=== PATIENT | male | born 1950 | race Caucasian/White ===

== ENCOUNTER 2016-09-02 09:12 | Emergency (ER) | payer MEDICARE ==
[~2016-09-02] VITALS: Ht 182.9 cm; Wt 104.1 kg
[2016-09-02 09:15] VITALS: BP 153/59; PULSE 81; RESP 18; O2SAT 100
--- NOTE | 2016-09-02 09:25 | ED.REPORT ---
HPI-Chest Pain 40 and Over Date of Service Sep 02, 2016 ED Provider: Diego Ho MD History of Present Illness: Sent from urgent care Pt is a 66 year old male with a history of HTN, hyperlipidemia, and type II DM who presents to the ED complaining of intermittent chest pain onset 2 months ago. He c/o associated dizziness, nausea SOB, lethargy (onset 2 months ago), weakness, intermittent numbness in toes and fingers, intermittent left shoulder and left arm pain (onset 2 weeks ago), and dyspnea with exertion. He denies vertigo, diaphoresis, hematuria, hematochezia, vomiting, sore throat, recent ear -related symptoms, extremity swelling, and any other symptoms. 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 Per pt, the chest pain stopped, but the dizziness in still present. Pt is a former smoker. He reports that he took Aspirin this morning to relieve his symptoms. Nursing Notes Stated Complaint: DIZZINESS Chief Complaint: General Complaint Nursing Notes Reviewed: Yes (autoGraph, Lengow not reconciled) Allergies: Coded Allergies: No Known Allergies (Unverified Allergy, Unknown, 09/02/16) Scheduled PRN Alprazolam (Xanax) 0.25 Mg Tablet 0.25-0.5 MG PO TID PRN PRN For Anxiety Meclizine (Bonine) 25 Mg Tab.chew 25 MG PO Q6H PRN PRN vertigo General Time Seen by MD: 09:19 Chief Complaint Chest pain Hx Obtained From: Patient Arrived By: Walk-in Sudden in Onset?: No Onset Occurred: Just prior to arrival Symptom Duration: 1 - 15 minutes Location: : Chest left Quality: Painful Severity: Current: Moderate Severity: Maximum: Moderate Recent Healthcare: No recent doctor visit, No recent hospitalization Similar Sx Previous: No Past Medical History Past Medical History Former drug abuse Reports: Diabetes mellitus (Type II), Hyperlipidemia, Hypertension Past Surgical History Denies Smoking History Former Smoker (quit 4 years ago) Social History Drug Use: Denies drug use Ambulatory Status Independent Review of Systems Denies vertigo Constitutional: Reports: Lethargy, Weakness - generalized Respiratory: Reports: Dyspnea on exertion, Shortness of breath Cardiovascular: Reports: Chest pain GI: Reports: Nausea, Denies: Hematochezia, Vomiting Musculoskeletal: Reports: Extremity pain, Denies: Extremity swelling Skin: Denies Diaphoresis Neurologic: Reports: Dizziness, Numbness Complete sys rev & neg: except as marked. Ears / Nose / Throat: Denies: Ear drainage bilateral, Ear ringing bilateral, Earache bilateral, Hearing loss bilateral, Sore throat Male: Denies Hematuria Physical Exam Initial Vital Signs Vital Signs (First) Date Time Temp Pulse Resp B/P Pulse Ox O2 Delivery O2 Flow Rate FiO2 09/02/16 09:15 36.7 81 18 153/59 100 Room Air Initial VS: Reviewed, Unavailable (none on chart, ordered) Head / Eyes: Atraumatic, Normocephalic Neck: Supple, Full range of motion Skin: Warm, Dry, No cyanosis Neurologic: Alert, Oriented, Nonfocal Psychiatric: Mood/affect normal, Behavior normal General/Constitutional: Awake, Alert, Cooperative Respiratory / Chest: Atraumatic, Breath sounds NL, Breath sounds = bilat Slightly diminished breath sounds. Not tachypneic or dypneic. Cardiovascular: Heart rate NL, Regular rhythm, Heart sounds NL Heart Rate / Rhythm: Negative: Tachycardia Abdomen: Atraumatic, Soft, Non-tender Lower Extremity / Pelvis / MS: Neurologic intact, Vascular intact, No edema Interpretation & Diagnostics MRI BRAIN WITH AND WITHOUT CONTRAST - IMPRESSION: 1. No acute intracranial hemorrhage or ischemia. 2. No convincing findings of metastatic disease within the brain. 3. Small extra-axial enhancing lesion positioned between the anterior right and left frontal lobes inferiorly has an appearance is most suggestive of a small meningioma. A metastatic lesion is felt to be less likely, but cannot be completely excluded. 4. Chronic small vessel ischemic changes. Dictated by: Jose Zhu M.D. on 09/02/2016 at 11:53 Lab Results Interpretation Result Diagram: 09/02/16 0944 09/02/16 0944 Test 09/02/16 09:44 09/02/16 11:12 White Blood Count 8.8th/mm3 (3.8-10.1) Red Blood Count 4.47mil/mm3 (4.40-5.80) Hemoglobin 11.8g/dL (13.8-17.2) Hematocrit 35.8% (41.0-50.0) Mean Corpuscular Volume 80.1fL (81-100) Mean Corpuscular Hemoglobin 26.4pg (27.0-35.0) Mean Corpuscular Hemoglobin Concent 33.0% (32.0-37.0) Red Cell Distribution Width 13.9% (12.3-15.4) Platelet Count 250bil/L (150-400) Neutrophils (%) (Auto) 70.2% (40-74) Lymphocytes (%) (Auto) 21.1% (14-46) Monocytes (%) (Auto) 6.9% (4-12) Eosinophils (%) (Auto) 1.5% (0-5) Basophils (%) (Auto) 0.2% (0-3) D-Dimer < 0.50mg/L FEU (<0.50) Sodium Level 133mEq/L (134-144) Potassium Level 4.5mEq/L (3.5-5.2) Chloride Level 94mEq/L (97-108) Carbon Dioxide Level 22mmol/L (18-29) Blood Urea Nitrogen 16mg/dL (8-27) Creatinine 0.89mg/dL (0.76-1.27) Estimat Glomerular Filtration Rate 91mL/min (>59) Glucose Level 299mg/dL (60-99) Calcium Level 9.3mg/dL (8.5-10.1) Magnesium Level 1.6mg/dL (1.6-2.6) Total Bilirubin 0.3mg/dL (0.0-1.2) Aspartate Amino Transf (AST/SGOT) 15U/L (0-50) Alanine Aminotransferase (ALT/SGPT) 13U/L (0-44) Alkaline Phosphatase 84U/L (25-160) Total Protein 7.5g/dL (6.4-8.4) Albumin 3.8g/dL (3.4-5.0) Troponin T 0.010ug/L (0.0-0.011) Lab Results Interpretation: CBC normal CMP elevated glucose troponin x2 negative ECG Interpretation ECG Interpretation: Normal sinus rhythm with rate of 77. Unchanged from ECG at urgent care or ECG dated 08/07/16. Urgent care was concerned with inferior q wave, but it is not pathologic and no acute ischemic changes are appreciated. Time: 09:32 Interpreted by: ED physician X-Ray Chest Interpretation Chest Xray Interpretation: IMPRESSION: 7.0 x 6.0 cm mass lesion in the left midlung appears new since July 2012, suspicious for neoplasm. Recommend further evaluation with contrast enhanced chest CT. Dictated by: Lyle Vaughan M.D. on 09/02/2016 at 9:55 View: Portable, 1 view Interpretation / Wet Read by: Interpret - Radiologist CT Chest Interpretation IMPRESSION: Left upper lobe anterior medial lung mass, with associated enlarged adjacent mediastinal lymph node, small pericardial effusion, and soft tissue a high density abnormal mass at the left adrenal gland, all findings likely indicating presence of primary bronchogenic carcinoma with early metastatic disease. A nuclear medicine PET CT scan would be very helpful to guide staging and potential site for biopsy. There are imaging findings potentially indicating that a smaller central mass near the left hilum is associated with retention of bronchogenic secretions more peripherally artifactually enlarging the appearance of the lesion within the left lung. PET CT scanning can assist in localizing the exact area of active neoplasm to guide biopsy in this clinical circumstance. Dictated by: Masoud Benito M.D. on 09/02/2016 at 11:31 Study type: Chest CT w contrast Interpretation / Wet Read by: Interpret - Radiologist Re-Eval/Medical Decision Med Decision/Clinical Course This is a 66-year-old male sent over from urgent care with concern for possible cardiac etiology. Patient presents complaining of some unusual fatigue over the past 2 months, some unanticipated weight loss, a very atypical transient chest pain lasting only a few seconds occurring intermittently for the past 2 months, and then an episode of vertiginous sounding dizziness that occurred today. It occurred while driving and was severe enough that home over, reports the whole environment was moving and spinning on him. There is no chest pain, shoulder pain, palpitations, diaphoresis, near syncope with this-it was isolated sense of movement. It improved, and he went to urgent care. He has risk factors of high blood pressure high cholesterol, diabetes is an ex- smoker quit 4 years ago. He appears well in the department. He has normal vitals, and is in no distress. He has no nystagmus, and a normal neurologic exam without focal deficit. His ear exams are normal. His no findings of venous thromboembolism. His EKG is normal-there was concern for T waves on EKG from urgent care, but my review these are non-pathologic Q waves. He had serial troponins and are negative. However is chest x-ray was notable for possible mass, and a CT was obtained that is indeed highly suspicious for pocket genic carcinoma with possible metastases. Patient is up-to-date in this. Given this an MRI of the brain was obtained, but no acute pathology was identified. Contacted Dr. Nacho Cortez from oncology and is able to set the patient up for an appointment on Monday to begin the process of workup. The patient is being discharged on meclizine when necessary. He is discharged and will during good condition. Routine return precautions reviewed. The patient's heart scores low and the clinical probability of his symptoms are very atypical for acute cardiac syndrome. Source of Hx: Old records, EMS Time of Eval: 10:40 Re-Evaluation/Progress Note: Pt rechecked. Informed pt of x-ray results and plan for CT. All questions addressed. Time of Eval: 11:51 Re-Evaluation/Progress Note: Pt rechecked. Informed pt of CT results and options to proceed. All questions addressed. Time of Eval: 13:14 Re-Evaluation/Progress Note: Pt rechecked. Pt requested a refill for Xanax. Informed pt of plan for discharge. Pt understands and agrees with plan for discharge. F/U instructions and RTER warnings given. All questions addressed. Consultation : Referral / Consult Name: Nacho Duff MD Call Returned at: 13:12 Guest Services Officer: Agrees with eval, Agrees with plan Note: Consult with oncology. Discussed pt's case. He will try see the pt on Monday at 15:30 for a follow up appointment. Differential Diagnosis: Negative: Acute coronary syndrome, Acute myocardial infarct, Chest pain, acute, Dysrhythmia, Hypertroph cardiomyopathy, Lucero- Hillman syndrome, Pleurisy, Pneumothorax, Pulmonary embolism, Stab wound chest, Stable angina Counseled Regarding: Diagnosis, Lab results, Need for follow-up, When/why to return to ED Discharge & Departure Primary Impression: Chest mass Additional Impression: Vertigo Disposition: Home Discharge Condition All VS Reviewed: Yes Condition: Stable Additional Instructions: 1. A dangerous cause of the dizziness was not identified. Your symptoms sound like vertigo. You can take meclizine 25mg up to three times a day as needed. ( Can cause some mild dizziness) 2. You were sent here with with a concern for the possibility of a heart problem -however her heart tests are normal. Unfortunately her tests to indicate that there is a mass in the left chest that is highly suspicious for cancer. 3. Your MRI did not reveal any clear signs of cancer having spread to the brain causing the dizziness. 4. I have been able to make an appointment for you to see the oncologist on Monday at 3:[address] Duff at the [facility]. He will help coordinate the workup and evaluation-as the next step is arranging a biopsy for further identification. This process usually takes several weeks. 5. Return if new or worsening symptoms. Referrals: [facility] Scribe Attestation Portions of this note were transcribed by Maris Casanova. I, Dr. Ho personally performed the history, physical exam and medical decision-making; I reviewed and confirmed the accuracy of the information in the transcribed note. Signed by: Samia Abdalla, 09/02/16 and 11:20. copies to: [facility] Diego Ho MD Sep 02, 2016 09:25 Maris Aly Sep 02, 2016 09:35
[2016-09-02 09:53] LABS: BASOPHILS % (AUTO) 0.2 % (0-3); EOSINOPHILS % (AUTO) 1.5 % (0-5); MONOCYTES % (AUTO) 6.9 % (4-12); Mean Corpuscular Hemoglobin 26.4 pg (27.0-35.0); Mean Corpuscular Volume 80.1 fL (81-100); NEUTROPHILS % (AUTO) 70.2 % (40-74); Platelet Count 250 bil/L (150-400)
--- NOTE | 2016-09-02 09:59 | DRSVH ---
PROCEDURE: X-RAY CHEST ONE VIEW, PORTABLE ([id number]) INDICATIONS: 66 year-old male with chest pain and intermittent left shoulder pain. TECHNIQUE: One view of the chest was acquired. COMPARISON: [facility], CR, CHEST 1VW, 08/18/2012, 14:49. [facility], CR, CH EST 1VW (PORTABLE), 08/18/2012, 12:42. FINDINGS: Surgical changes and devices: None. Lungs and pleura: No pleural effusions or pneumothorax. 7.0 x 6.0 cm masslike opacity is now present in the left midlung. Right lung remains clear. Mediastinum: Mediastinal contours appear normal. Heart size is normal. Bones and chest wall: No suspicious bony lesions. Overlying soft tissues appear unremarkable. IMPRESSION: 7.0 x 6.0 cm mass lesion in the left midlung appears new since July 2012, suspicious for neoplasm. Recommend further evaluation with contrast enhanced chest CT. Dictated by: Lyle Vaughan M.D. on 09/02/2016 at 9:55 Approved by: Lyle Vaughan M.D. on 09/02/2016 at 9:57
[2016-09-02 10:13] LABS: TROPONIN T 0.01 ug/L (0.0-0.011)
[2016-09-02 10:24] LABS: Magnesium 1.6 mg/dL (1.6-2.6)
--- NOTE | 2016-09-02 11:43 | DRSVH ---
PROCEDURE: CT CHEST WITH CONTRAST ([id number]) INDICATIONS: L Chest MAss TECHNIQUE: After the administration of intravenous contrast, 5 mm thick sections acquired from the pulmonary api jonny to the posterior costophrenic angles. 7 mm thick coronal and sagittal MIP reformats were acquire d. For radiation dose reduction, the following was used: automated exposure control, adjustment of mA and/or kV according to patient size. COMPARISON: [facility], CR, CHEST 1VW (PORTABLE), 08/18/2012, 12:42. [facility], CR, CHEST 1VW, 08/18/2012, 14:49. [facility], CR, XR CHEST 1VW (PORTABLE), 09/02/2016 , 9:34. FINDINGS: Image quality: Excellent. Lungs and pleura: There is a large lung mass involving the left upper lobe, abutting the left anterol ateral mediastinal border and associated with slight pericardial effusion. This mass has overall dim ensions of 7.1 x 7.6 x 5.4 cm but has a central mass near the left hilum that is slightly lower in ra diodensity measuring up to 3.6 cm. Therefore there may be a central mass with retention of pulmonary secretions beyond that point as cause of this overall larger masslike appearance. There is a abnorm ally enlarged anterior mediastinal lymph node measuring up to 1 point for centimeters in maximal shor t axis dimension (series 2 image 24), and elsewhere no mediastinal or hilar adenopathy is seen. No p leural effusions or pneumothorax. Central and peripheral airways are otherwise patent and normal in caliber. Mediastinum: Heart size is normal. Thoracic aorta and central pulmonary arteries are normal in size . Esophagus is normal in caliber. No hiatal hernia. Bones and chest wall: No suspicious bony lesions. No vertebral body compression fractures. No axil erica or supraclavicular adenopathy by size criteria. Thyroid gland appears normal where well visuali zed. Abdomen: Visualized upper abdominal solid organs appear normal except for presence of a 38 Hounsfiel d unit 2.3 x 2.9 cm left adrenal mass, likely malignant in this clinical circumstance. Upper abdomin al bowel loops are normal in caliber. IMPRESSION: Left upper lobe anterior medial lung mass, with associated enlarged adjacent mediastinal lymph node, small pericardial effusion, and soft tissue a high density abnormal mass at the left adre nal gland, all findings likely indicating presence of primary bronchogenic carcinoma with early metas tatic disease. A nuclear medicine PET CT scan would be very helpful to guide staging and potential site for biopsy. There are imaging findings potentially indicating that a smaller central mass near the left hilum is associated with retention of bronchogenic secretions more peripherally artifactually enlarging the a ppearance of the lesion within the left lung. PET CT scanning can assist in localizing the exact are a of active neoplasm to guide biopsy in this clinical circumstance. Dictated by: Masoud Benito M.D. on 09/02/2016 at 11:31 Approved by: Masoud Benito M.D. on 09/02/2016 at 11:41
--- NOTE | 2016-09-02 13:01 | DRSVH ---
PROCEDURE: MRI BRAIN WITH AND WITHOUT CONTRAST ([id number]) INDICATIONS: vertigo, dizziness ?metastatic dz (new lung mass) TECHNIQUE: Noncontrast axial T1 spin echo, axial T2 fast spin echo, sagittal and axial FLAIR, coronal T2 fast sp in echo, axial gradient echo, axial diffusion and ADC through the brain. After the administration of contrast, axial and coronal 3D VIBE or T1 spin echo with fat saturation through the brain. COMPARISON: None. FINDINGS: Image quality: Diagnostic. Brain: There is no acute intra-axial or extra-axial hemorrhage. No extra-axial fluid collection is i dentified. There is no midline shift or mass effect. The orbits are grossly unremarkable. No focal parenchymal abnormalities or masses are identified. However, there is a small extra axial l esion identified on the inferior margin of the anterior frontal region between the right and left fro ntal lobes that measures 10 x 6 mm (image 86, series 11), which also has angular margins appear to be contiguous with the dura mater. This structure demonstrates avid post contrast enhancement. No add itional abnormal enhancement within the brain is evident. There is no large area of parenchymal katja a. However, numerous small foci of increased flair signal are seen scattered throughout the deep whi te matter of the supratentorial brain. No restricted diffusion is present. The midline intracranial structures are within normal limits. The major expected intracranial flow voids are visualized and u nremarkable. The ventricles and cortical sulci are age-appropriate. Bones: The imaged osseous structures are grossly intact. No suspicious osseous lesions are identifie d. The included paranasal sinuses and mastoid air cells are clear. Extracranial soft tissues: The imaged overlying soft tissues of the face and head are grossly unremar kable. IMPRESSION: 1. No acute intracranial hemorrhage or ischemia. 2. No convincing findings of metastatic disease within the brain. 3. Small extra-axial enhancing lesion positioned between the anterior right and left frontal lobes i nferiorly has an appearance is most suggestive of a small meningioma. A metastatic lesion is felt to be less likely, but cannot be completely excluded. 4. Chronic small vessel ischemic changes. Dictated by: Jose Zhu M.D. on 09/02/2016 at 11:53 Approved by: Jose Zhu M.D. on 09/02/2016 at 11:59
[2016-09-02] MEDS ORDERED: MECL-114 PO (13:36)
[2016-09-02] MEDS ORDERED: ALPR0.25 PO (13:43)
[2016-09-02 13:49] VITALS: BP 160/83; PULSE 74; RESP 16; O2SAT 98
[2016-09-08] MEDS ORDERED: GLBR5T PO (07:58)
[2016-09-08] MEDS ORDERED: METF500T4 PO (07:58)
[2016-09-08] MEDS ORDERED: TAMS0.4C98 PO (07:58)
[2016-09-08] MEDS ORDERED: SIMV40TA5 PO (07:58)
[2016-09-08] MEDS ORDERED: LOSA50TA37 PO (07:58)
[2016-09-08] MEDS ORDERED: ASPI325T32 PO (07:58)
[2016-09-12] MEDS ORDERED: GLIM4TAB2 PO (09:44)
[2016-09-12] MEDS ORDERED: glucose strips TOPICAL (09:44)
[2016-09-12] MEDS ORDERED: FIBER OTC PO (09:44)
[2016-09-12] MEDS ORDERED: LOSA100T29 PO (09:44)
== END 2016-09-02 13:50 | disposition home or self-care (01) ==
LOC: SED 09:12
DX: R22.2 Localized swelling, mass and lump, trunk (principal); R42 Dizziness and giddiness; R11.0 Nausea; E11.9 Type 2 diabetes mellitus without complications; I10 Essential (primary) hypertension; Z87.891 Personal history of nicotine dependence; R53.1 Weakness; E78.5 Hyperlipidemia, unspecified
CPT/HCPCS: 36415; 70553; 71010; 71260; 80053; 82962; 83735; 84484; 85025; 85378; 93005; 99285; A4300; A9585; G0463; Q9967

== ENCOUNTER → 2016-09-26 | Day surgery (SDC) | payer MEDICARE ==
[~2016-09-26] VITALS: Ht 180.3 cm; Wt 105.6 kg
[~2016-09-26] MED LIST: ASPI325T32 PO; Atropine 0.4 mg/mL Inj IVPUSH PRN; Bupivacaine-MPF 0.5% 30 mL Inj INFILTRATE ONE; CeFAZolin 2 Gm/50 mL D5W Duplex Bag IV ONE; CeFAZolin 2 Gm/50 mL D5W IV Premix IV SCH; EPHEDrine Sulfate 50 mg/mL Inj IVPUSH PRN; GLIM4TAB2 PO; HYDROmorphone 1 mg/mL Inj IVPUSH PRN; HepLOK Flush 100 unit/mL 5 mL Inj IVFLUSH ONE; Ketamine 10 mg/mL 20 mL Inj ONE; LORazepam 1 mg Tablet PO PRN; LOSA100T29 PO; LOVA20TA PO; Labetalol 5 mg/mL 4 mL Inj IV PRN; Lactated Ringer's 1,000 ML IV ONE; Lactated Ringer's 1,000 ML IV SCH; Lactated Ringer's 500 ML IV PRN; METF1000 PO; Ondansetron 2 mg/mL 2 mL Inj IVPUSH PRN; Phenylephrine 10,000 mCg/mL Inj IVPUSH PRN; Propofol 10,000 mCg/mL 20 mL Inj ONE; Remifentanil 1 mg/3 mL Inj ONE; TAMS0.4C98 PO; [UNRECOGNIZED DRUG - CODE] PO; fentaNYL-PF 50 mCg/mL 2 mL Inj IVPUSH PRN; hydrALAZINE 20 mg/mL Inj IVPUSH PRN
[2016-09-26 10:15] VITALS: BP 136/76; PULSE 74; RESP 17; O2SAT 98
--- NOTE | 2016-09-26 13:14 | PCM.HPANE ---
Patient Data Surgeon Admitting Provider: Attending Provider:Yunior Mckeon MD Primary Care Physician:Garfield Johnson MD Other Provider:Cherelle Mckeoningham Anesthesia Reason for Visit Lung Cancer Ht/WT & BMI Height (Feet): 5 Height (Inches): 11.00 Weight (Kilograms): 105.600 Body Mass Index 32.00 Allergies Coded Allergies: No Known Allergies (Verified Allergy, Unknown, 09/23/16) Past Anesthesia History Anesthesia History: Denies:: Abnormal Airway, Anesthesia Reactions, Difficult Intubation, Fam Anesthesia Reaction, Fam Malignant Hypertherm, Malignant Hyperthermia Diabetes History Hx Diabetes?: No Glycemic Control: Oral Medication MRSA MRSA: No Medications Blood Thinner: Aspirin Last Dose Blood Thinner: Sep 22, 2016 Home Meds Incl Beta Nilson: No Reported Medications Tamsulosin (Flomax)0.4 Mg Capsule0.4 Mg PO DAILY Ref 0 09/23/16 Lovastatin 20 Mg [id number] Mg PO HS #30 TABLET Ref 0 09/23/16 Losartan Potassium 100 Mg [id number] Mg PO 09/23/16 Aspirin 325 Mg [id number] Mg PO #1 BOTTLE 09/23/16 Glimepiride 4 Mg Tablet4 Mg PO DAILYAC #30 TABLET Ref 0 09/23/16 Metformin (Glucophage)1,000 Mg Tablet1,000 Mg PO BID Ref 0 09/23/16 Alprazolam ODT 0.25 Mg Tab.rapdis0.25 Mg PO BID PRN For Anxiety Ref 0 09/23/16 Discontinued Reported Medications [fiber otc] No Conflict Check1 Unit PO DAILY CONSTIPATION 09/12/16 Losartan Potassium 100 Mg [id number] Mg PO DAILY #90 TABLET 09/12/16 Glimepiride 4 Mg Tablet4 Mg PO DAILYAC #90 TABLET Ref 0 09/12/16 Metformin 500 Mg Tablet1,000 Mg PO DAILY Ref 0 09/08/16 Tamsulosin (Flomax)0.4 Mg Capsule0.4 Mg PO BID #180 CAPSULE Ref 0 09/08/16 Simvastatin 40 Mg [id number] Mg PO HS #90 TABLET Ref 0 09/08/16 Aspirin 325 Mg [id number] Mg PO DAILY #1 BOTTLE 09/08/16 [glucose strips] No Conflict Check #1 UNIT TOPICAL BID Diabetes 09/12/16 Discontinued Scripts Alprazolam (Xanax)0.25 Mg Tablet0.25-0.5 Mg PO TID PRN For Anxiety #30 TABLET Ref 0 Prov:Diego Ho MD 09/02/16 Meclizine (Bonine)25 Mg Tab.chew25 Mg PO Q6H PRN vertigo #30 TABLET Prov:Diego Ho MD 09/02/16 History History of ENT Problems?: Yes HEENT History: Positive for:: Sinus Problem (fx nose several time) Denies:: Abnormal Airway Cataracts Difficult Intubation Dysphagia Glaucoma Hearing Problem TMJ Denture Type: None Teeth Condition: Within Normal Limits Hx of Heart Problems?: Yes Cardiovascular History: Positive for:: Hypertension Denies:: AICD Abdominal Aortic Aneurism Atrial Fibrillation Cardiac Surgery Chest Pain Congestive Heart Failure Coronary Artery Disease Edema Heart Murmur Irregular Heartbeat Pacemaker Peripheral Vascular Rheumatic Fever Thrombophlebitis Valvular Heart Disease Hx of Respiratory Problem?: Yes Respiratory History: Positive for:: Cough Dyspnea Hx Neurologic Problems?: No Hx of GI Problems?: Yes Hx of Problems?: No Genitourinary History: Denies:: HX of Hemodialysis Kidney Stones HX of Peritoneal Dialysis: No Male Hx: Positive for:: Prostate Problems (BHP) Denies:: Scrotal Mass Testicular Surgery Skin History: Denies:: History Skin Disorders? Pressure Ulcers Hx Musculoskeletal Problems?: Yes Musculoskeletal History: Positive for:: Back Injury (neck fusion, lumbar fusion) Musculoskeletal Trauma (broken ankle 2010) Osteoarthritis Denies:: Degenerative Joint Fibromyalgia Joint Replacement Myasthenia Gravis Rheumatoid Arthritis Systemic Lupus Hx of Psycho/Social Problems?: Yes Psycho Social History: Positive for:: Anxiety (occasional panic attack, PTSD) Hx Depression Denies:: Suicide Attempt Hx Surgeries?: Yes (right ankle pins, back and neck fusion) Hx Any Other Health Problems?: Yes Other History: Positive for:: Cancer (lung CA currently ) Hospitalization (back fusions) Denies:: Endocrine Disease Thyroid Disease History Blood Transfusions: Positive for:: Accept Blood Products? Denies:: Blood Transfuse Reaction Blood Transfusions Hx Diabetes: No Hx Alcohol Use: NoHx Substance Use: No Smoking Status: Heavy Tobacco Smoker Have You Smoked inLast 12 mo: No Stop/Bang S-Snoring: Do You Snore Loudly: No T-Tired: feel tired, fatigued: Yes O-Obsered: Observed not breath: No P-Blood Pressure: treated: Yes B- Body Mass Index > 35 kg/m2: No A- Age over 50: Yes N- Neck Large Circumference: Yes G- Gender Male: Yes SPRING Total Score: 5 Risk Assessment Category Category 1A: Patient has history of documented sleep apnea, and HAS NOT received any narcotic, sedative or anesthesia administration during this stay. Category 1B: Patient has history of documented sleep apnea, and HAS received any narcotic , sedative or anesthesia administration during this stay Category 2: Patient has SUSPECTED Obstructive Sleep Apnea, and HAS received any narcotic , sedative or anesthesia administration during this stay. Category 3: Patient has SUSPECTED Obstructive Sleep Apnea and HAS NOT received narcotic, sedative or anesthesia administration during this stay. Category 4: Outpatient in Procedural Areas with known sleep apnea or who screen positive for High Risk via the STOP/BANG questionnaire. Exam Exam Vital Signs Vital Signs Date Time Temp Pulse Resp B/P Pulse Ox O2 Delivery O2 Flow Rate FiO2 09/26/16 10:15 74 17 136/76 98 Room Air General Appearance: Alert, Oriented X3, Cooperative, Moderate Distress HEENT/AIRWAY: MP 2, Neck Movement (30% expected ROM), Mouth Opening (WNL) Lungs: Clear to Auscultation Heart: Exam Unremarkable Plan Impression Patient chart reviewed, patient interviewed and anesthestic plan with risks, benefits, and alternatives discussed, and informed consent obtained. ASA Physical Status: ASA2 Mod Systemic Disease Anesthetic Plan: MAC Bene/Risks/Altern/Consents: Yes HP Complete Prior to Induction: Yes Weston Angela MD Sep 26, 2016 13:14
[2016-09-26 14:18] VITALS: BP 145/79; PULSE 90; RESP 16; O2SAT 98
[2016-09-26 14:44] VITALS: BP 158/76; PULSE 86; RESP 18; O2SAT 97
--- NOTE | 2016-09-26 15:01 | DRSVH ---
PROCEDURE: X-RAY CHEST ONE VIEW, PORTABLE ([id number]) INDICATIONS: PORT PLACEMENT POST OP TECHNIQUE: One view of the chest was acquired. COMPARISON: [facility], CR, XR CHEST 1VW (PORTABLE), 09/19/2016, 12:29. [facility], CR, XR CHEST 1VW (PORTABLE), 09/19/2016, 11:17. FINDINGS: Surgical changes and devices: A Port-A-Cath from left-sided approach extends within the superior vena cava on the right, to the distal SVC.. Lungs and pleura: No pleural effusions or pneumothorax. Lungs are unchanged with a large mass lesio n contiguous with the middle third of the left hilum. Mediastinum: Mediastinal contours appear normal. Heart size is normal. Bones and chest wall: No suspicious bony lesions. Overlying soft tissues appear unremarkable. IMPRESSION: Port-A-Cath from left-sided approach extends in normal position without secondary pneumot horax. Large left-sided mass lesion previously identified. Dictated by: Masoud Benito M.D. on 09/26/2016 at 13:59 Approved by: Masoud Benito M.D. on 09/26/2016 at 14:00
--- NOTE | 2016-09-26 17:15 | PCM.ANEP1 ---
Post Anesthesia PACU Phase 1 Assessment Vital Signs Vital Signs Date Time Temp Pulse Resp B/P Pulse Ox O2 Delivery O2 Flow Rate FiO2 09/26/16 14:44 86 18 158/76 97 Room Air 09/26/16 14:18 36.7 90 16 145/79 98 Room Air 09/26/16 10:15 74 17 136/76 98 Room Air Anesthetic Administered: MAC Level of Alertness: Awake, talking BELL's with Equal Strength: Yes Pain: No Nausea or Vomiting: No CV Function & Hydration Stable: Yes Airway Device: Oxygen Delivery: Room Air Lungs: Normal Air Movement PACU Phase 2 Assessment Complications: No Follow up Care: No Patient Instructions Provided: N/A Weston Angela MD Sep 26, 2016 17:15
--- NOTE | 2016-09-26 21:49 | OP ---
[address] [address] OPERATIVE REPORT PATIENT: JORGE BAUGH : 1950 MR#: [id number] ADMIT: 09/26/2016 JOB ID: [id number] DATE OF SURGERY: 09/26/2016 SURGEON: Yunior Mckeon MD. PREOPERATIVE DIAGNOSIS(ES): Metastatic lung cancer. POSTOPERATIVE DIAGNOSIS(ES): Metastatic lung cancer. PROCEDURE PERFORMED: Left subclavian tunneled central venous catheter with subcutaneous port placement. COMPLICATIONS: None. CONDITION OF THE PATIENT: Stable. INDICATIONS: The patient is a 66-year-old gentleman who developed chest pain and dizziness and was found to have left upper lobe T3 N2 M1 cancer and I was asked by Dr. Duff to help with central venous access. After discussing the risks, benefits and alternatives, he is here to have that done. PROCEDURE DETAILS: He was placed in a supine position, underwent sedation, and neck and chest were prepped and draped in the usual sterile fashion. Surgical time-out was undertaken using safety checklist, and all were in agreement. I began by placing him in supine position and accessing the left subclavian vein using Seldinger technique. I checked wire position fluoroscopically, measured the required length of catheter, and then made a pocket over the left pectoralis. I then anchored the port to the pectoralis fascia and cut the catheter to the appropriate size based on the fluoroscopic measurement, and dilated the wire tract and advanced the catheter through the introducer sheath. I then removed the tear-away sheath and aspirated and flushed the catheter and made sure it is working well and flushed it with heparinized. After checking final placement of the catheter, I closed the skin in layers of 4-0 Monocryl, then placed Dermabond as a dressing. He was recovered from anesthesia and taken to the recovery room and was found to have everything in good position on the final x-ray in the recovery room.
== END | disposition home or self-care (01) ==
LOC: SAS 09:27
PROVIDERS: ATTEND Student in an Organized Health Care Education/Training Program
DX: C34.90 Malignant neoplasm of unspecified part of unspecified bronchus or lung (principal); I10 Essential (primary) hypertension; E11.9 Type 2 diabetes mellitus without complications; E78.5 Hyperlipidemia, unspecified; M19.90 Unspecified osteoarthritis, unspecified site; N40.0 Benign prostatic hyperplasia without lower urinary tract symptoms; F41.8 Other specified anxiety disorders; Z86.010 Personal history of colon polyps; Z79.84 Long term (current) use of oral hypoglycemic drugs; Z87.891 Personal history of nicotine dependence; Z79.82 Long term (current) use of aspirin
CPT/HCPCS: 36561; 71010; 77001; C1788; C1892; C1894; J0690; J1642; J2250; J7120